=== PATIENT | female | born 1955 | race Two or more races ===

== ENCOUNTER 2021-01-25 17:10 | Outpatient (AMBR) | payer MEDICARE, SELFPAY ==
--- NOTE | 2021-01-23 15:39 | PT.OIERPT ---
PT OP Initial Eval Patient Information Visit Reasons: low back pain Medical Diagnosis: LBP Treatment Dx #1: LBP Start of Care: 01/23/21 Date of Onset: 3 weeks ago Initial Assessment Subjective Pt is 65 yr old bulgarian speaking female that reports worsening LBP exacerbation that radiates down R LE to the heel x3 weeks. Increased LBP with bending, lifting and twisting. She takes pain meds in order to work with back brace in the [employer]. PMH: OA Imaging: MRI and X-ray of L/s in EMR, Grade 1 anterolisthesis L4 on L5, L5-S1 2 mm central lumbar disc bulge contiguous with the right S1 nerve root, L4-L5 2 mm left paracentral disc bulge Pt goal: less LBP and R LE pain Objective Trunk ArOM: B SB 50% of normal with pain L>R Extension: 30% with pain around L4-5, L5-S1 centrally Flexion: 2 from floor with LBP B rotation: 40% with pain R SLR ROM: 45 deg with posterior knee neural tension, LBP LE strength: B hamstrings: 4-/5 Quads 4-/5 Hip abd/add 4-/5 TTP: moderate paraspinals L4-5 and diffusely L3-S1 Neuro: R SLR: positive Assessment Pt presents with trunk extension sensitivity and overlying myofascial pain and TTP around L5-S1. Pt has lumbar extensor atrophy and pain with prolonged standing. These findings are consistent with MRI that shows spondylolisthesis and lower lumbar disc irritation/dysfunction. Pt requires skilled therapy in order to decrease pain and improve standing tolerance and has fair rehab potential. Short Term and Custodial Goals 1. Ind with HEP 2. Improved standing tolerance to 30 minutes with <=4/10 LBP 3. Pt will improve ambulatory distance to 2 [address] blocks 4. Pt will squat x15 with lumbar lordosis and no increase in LBP Treatment Plan 1. Manual therapy 2. Therex 3. Modalities as indicated, moist heat, ice, estim, mechanical traction Frequency and Duration 2x a week for 6 weeks Certification Dates: 01/23/21 to 04/23/21 Office Procedures PT Treatments PT Date of Service: 01/23/21 OP PT Eval Mod Complex 30 minutes: Yes
--- NOTE | 2021-01-25 18:53 | PTNOTE_ITS ---
PT Outpatient Daily Note Date of Service: 01/25/21 OP Daily Note Visit Reasons: low back pain Outpatient Physical Therapy Treatment Date: 01/25/21 Subjective: Same as time of evaluation Objective: See F/S for therex MT: StM L/S with Graston L4-S1 region x10' Assessment: Moderate TTP with MT today L>R sides of L/S. Pt has difficulty lifting LE's in supine to do stretching so we used a towel today Plan: Continue per pOc Length of Time (minutes) of Treatment: 30 Minutes Office Procedures PT Treatments PT Date of Service: 01/23/21 OP PT Eval Mod Complex 30 minutes: Yes PT Treatments PT Date of Service: 01/25/21 Therapeutic Exercise 15 minutes: Yes Manual Management Instructor 15 minutes: Yes
== END 2021-01-29 23:59 | disposition home or self-care (01) ==
PROVIDERS: PCP Orthopaedic Surgery; Referring Provider Orthopaedic Surgery; Visit Provider Orthopaedic Surgery
DX: M54.41 Lumbago with sciatica, right side (principal)
CPT/HCPCS: 97110; 97140; 97162

== ENCOUNTER 2021-02-28 15:40 | Outpatient (AMBR) | payer MEDICARE, SELFPAY ==
--- NOTE | 2021-02-14 12:23 | PT.ODAYNRPT ---
PT Outpatient Daily Note Date of Service: 02/14/21 OP Daily Note Visit Reasons: LOW BACK PAIN Outpatient Physical Therapy Treatment Date: 02/14/21 Subjective: Continued LBP about the same as before therapy Objective: See F/S for therex MT: STM L1-5 with Graston x12' Assessment: Moderate TTP of L/S paraspinals with MT today and prone on elbow positioning. Plan: Continue per POC Length of Time (minutes) of Treatment: 30 Minutes Office Procedures PT Treatments PT Date of Service: 02/14/21 Therapeutic Exercise 15 minutes: Yes Manual Senior Enlisted Advisor 15 minutes: Yes
--- NOTE | 2021-02-28 18:38 | PTNOTE_ITS ---
PT Outpatient Daily Note Date of Service: 02/28/21 OP Daily Note Visit Reasons: LOW BACK PAIN Outpatient Physical Therapy Treatment Date: 02/28/21 Subjective: Continued LBP about the same from her neck down to the belt line Objective: See F/S for therex MT: STM L1-5 with Graston x10' Mechanical traction x7' at 40 lbs Assessment: High tissue irritability limits transitional movements and trunk AROM. Moderate TTP of L/S paraspinals with MT today and prone on elbow positioning. Plan: Continue per POC Length of Time (minutes) of Treatment: 35 Minutes Office Procedures PT Treatments PT Date of Service: 02/14/21 Therapeutic Exercise 15 minutes: Yes Manual Puncher And Fastener 15 minutes: Yes PT Treatments PT Date of Service: 02/28/21 Therapeutic Exercise 15 minutes: Yes Manual Puncher And Fastener 15 minutes: Yes
== END 2021-02-28 23:59 | disposition home or self-care (01) ==
PROVIDERS: PCP Orthopaedic Surgery; Referring Provider Orthopaedic Surgery; Visit Provider Orthopaedic Surgery
DX: M54.50 Low back pain, unspecified (principal)
CPT/HCPCS: 97110; 97140

== ENCOUNTER 2021-03-28 14:59 | Outpatient (AMBR) | payer MEDICARE, SELFPAY ==
--- NOTE | 2021-03-28 18:31 | PTNOTE_ITS ---
PT OP Progress/Discharge Note Date of Service: 03/28/21 Progress Note/DC Note Progress Note/Discharge Note: DC Note Patient Information Visit Reasons: LOW BACK PAIN Service Continue Service or Discharge: Discharge Discharge Date: 03/28/21 Status Subjective: Continued intense LBP with radiation down the LE same as before therapy. Doesn't think therapy will help her. Objective: Trunk AROM: B SB 50% of normal Extension: 30% of normal with pain Flexion: 2 from floor with pain Assessment: Pt has attended the eval and 4 Rx visits with limited progress with therapy goals due to continued LBP and high tissue irritability. She is not likely going to meet goals. Objective findings are unchanged since eval. Plan: Pt discharged for further workup Office Procedures PT Treatments PT Date of Service: 03/28/21 Therapeutic Exercise 15 minutes: Yes Manual Public Aid Eligibility Assistant 15 minutes: Yes
== END 2021-03-31 23:59 | disposition home or self-care (01) ==
PROVIDERS: PCP Orthopaedic Surgery; Referring Provider Orthopaedic Surgery; Visit Provider Orthopaedic Surgery
DX: M54.50 Low back pain, unspecified (principal); M19.90 Unspecified osteoarthritis, unspecified site
CPT/HCPCS: 97110; 97140

== ENCOUNTER → 2024-05-11 | Outpatient (CLI) | payer OTHER, SELFPAY ==
[2024-05-11 10:50] LABS: Collection Type, Urine Clean Catch
[2024-05-11 11:30] LABS: Basophils # (Auto) 0.1 Thou/mm3 (0.0-0.2); Basophils % (Auto) 1 % (0-2.5); Eosinophils # (Auto) 0.2 Thou/mm3 (0.0-0.5); Eosinophils % (Auto) 3 % (0-10); Hematocrit 43.5 % (36.0-46.0); Hemoglobin 14.3 g/dL (12.0-16.0); Immature Granulocytes % (Auto) 0 % (0-0); Immature Granulocytes Auto 0.02 Thou/mm3 (0.00-0.00); Lymphocytes # (Auto) 2.4 Thou/mm3 (1.0-4.8); Lymphocytes % (Auto) 37 % (10-50); Mean Corpuscular HGB Conc 32.9 g/dl (31.0-37.0); Mean Corpuscular Hemoglobin 28.5 pg (25.0-35.0); Mean Corpuscular Volume 87 fL (80-100); Monocytes # (Auto) 0.5 Thou/mm3 (0.0-0.8); Monocytes % (Auto) 8 % (0-12); Neutrophils # (Auto) 3.3 Thou/mm3 (1.8-7.7); Neutrophils % (Auto) 51 % (37-80); Nucleated Red Blood Cell % 0 /100 WBC (0); Platelet Count 296 Thou/mm3 (140-440); RDW Standard Deviation 41.3 fL (36.4-46.3); Red Blood Count 5.02 Miln/mm3 (4.00-5.20); White Blood Count 6.5 Thou/mm3 (3.6-11.0)
[2024-05-11 11:38] LABS: Bilirubin,Urine Negative (Negative); Blood,Urine Negative (Negative); Clarity,Urine Clear (Clear/Hazy); Color,Urine Lt-Yellow (Lt Yel-Yel); Glucose, Urine Negative (Negative); Ketones,Urine Negative (Negative); Leukocyte Esterase,Urine Negative (Negative); Nitrite,Urine Negative (Negative); Protein,Urine Negative (Neg - Trace); RBC,Urine 2 /hpf (0-3); Squamous Epithelial Cell,Urine < 1 /hpf (0-5); Urobilinogen,Urine Negative mg/dL (0.0-1.0); WBC,Urine 1 /hpf (0-5)
[2024-05-11 11:46] LABS: Glucose Estimated Average 123 mg/dL (80-131); Hemoglobin A1C 5.9 % Hgb (4.8-6.0)
[2024-05-11 11:51] LABS: Vitamin D 25 Hydroxy Total 24.8 ng/mL (7.3-40.2)
[2024-05-11 11:57] LABS: Alanine Aminotransferase 18 U/L (10-49); Albumin, Serum 4.2 gm/dL (3.4-4.8); Albumin/Globulin Ratio 1.5 (1.2-2.2); Alkaline Phosphatase 85 U/L (46-116); Anion Gap 6 (7-16); Aspartate Amino Transferase 18 U/L (0-34); BUN/Creatinine Ratio 21 Ratio (12-20); Bilirubin,Total 0.5 mg/dL (0.3-1.2); Blood Urea Nitrogen 15 mg/dL (9-23); Calcium 9.7 mg/dL (8.3-10.6); Calcium (Corrected) 9.7 mg/dL (8.5-10.1); Carbon Dioxide 28.8 mMol/L (20.0-31.0); Chloride 105 mMol/L (98-107); Cholesterol 182 mg/dL (132-200); Creatinine (Component) 0.7 mg/dL (0.6-1.3); Globulin 2.8 gm/dL (2.3-3.5); Glucose 109 mg/dL (74-106); HDL Cholesterol 45 mg/dL (40-60); LDL Cholesterol,Calculated 110 mg/dL (0-130); Osmolality,Calculated 281 (275-295); Potassium 4.9 mMol/L (3.4-5.1); Sodium 140 mMol/L (136-145); Thyroid Stimulating Hormone 0.97 uIU/mL (0.55-4.78); Triglycerides 137 mg/dL (30-150); eGFR > 60 See Note
== END | disposition home or self-care (01) ==
PROVIDERS: PCP Nurse Practitioner Family; Referring Provider Nurse Practitioner Family; Visit Provider Nurse Practitioner Family
DX: Z00.00 Encounter for general adult medical examination without abnormal findings (principal); N39.0 Urinary tract infection, site not specified; R53.83 Other fatigue; Z13.89 Encounter for screening for other disorder; Z13.0 Encounter for screening for diseases of the blood and blood-forming organs and certain disorders involving the immune mechanism; Z13.220 Encounter for screening for lipoid disorders; Z13.21 Encounter for screening for nutritional disorder; Z13.29 Encounter for screening for other suspected endocrine disorder; Z83.3 Family history of diabetes mellitus
CPT/HCPCS: 36415; 80053; 80061; 81001; 82306; 83036; 84443; 85025; 87086

== ENCOUNTER → 2024-05-15 | Outpatient (CLI) | payer OTHER, SELFPAY ==
[2024-05-15 14:27] LABS: OBS Card Expiration Date 2026/05; OBS Performed By LAB; OBS QC OK? Yes
[2024-05-15 17:49] LABS: OBS Developer Lot # 23003; Occult Blood, Stool Negative (Negative); Occult Blood, Stool #2 Negative (Negative); Occult Blood, Stool #3 Negative (Negative)
== END | disposition home or self-care (01) ==
PROVIDERS: PCP Nurse Practitioner Family; Referring Provider Nurse Practitioner Family; Visit Provider Nurse Practitioner Family
DX: Z12.11 Encounter for screening for malignant neoplasm of colon (principal)
CPT/HCPCS: 82270

== ENCOUNTER → 2024-05-29 | Outpatient (CLI) | payer OTHER, SELFPAY ==
--- NOTE | 2024-05-29 10:00 | XR_ITS ---
Examination: Screening digital mammography, bilateral Computer aided detection 3-D breast Tomosynthesis, bilateral Date and time of exam: 05/29/2024, 9:35 AM Comparisons: May 2017 through April 2023 Indications: Screening Technique: Nonmagnified MLO, CC views of the breasts to been obtained, reconstructed from 3-D Tomosynthesis images. R2 computer aided detection program utilized for evaluation of suspicious masses and/or abnormal calcifications. 3-D Tomosynthesis images obtained. Technologist: Findings: There are scattered areas of fibroglandular density. No evidence of abnormal masses or suspicious calcifications. Impression: BI-RADS category 1: Negative findings (within normal) Recommend 1 year follow-up mammogram
== END | disposition home or self-care (01) ==
LOC: CDIM 09:29
PROVIDERS: Referring Provider Nurse Practitioner Family; Visit Provider Nurse Practitioner Family
DX: Z12.31 Encounter for screening mammogram for malignant neoplasm of breast (principal); R92.313 Mammographic fatty tissue density, bilateral breasts
CPT/HCPCS: 77063; 77067

== ENCOUNTER → 2024-06-16 | Outpatient (CLI) | payer OTHER, SELFPAY ==
[2024-06-16 09:51] LABS: Basophils % (Auto) 0 % (0-2.5); Eosinophils # (Auto) 0.1 Thou/mm3 (0.0-0.5); Eosinophils % (Auto) 1 % (0-10); Hematocrit 38.7 % (36.0-46.0); Hemoglobin 12.8 g/dL (12.0-16.0); Immature Granulocytes % (Auto) 0 % (0-0); Immature Granulocytes Auto 0.02 Thou/mm3 (0.00-0.00); Lymphocytes # (Auto) 2.4 Thou/mm3 (1.0-4.8); Lymphocytes % (Auto) 33 % (10-50); Mean Corpuscular HGB Conc 33.1 g/dl (31.0-37.0); Mean Corpuscular Hemoglobin 28.7 pg (25.0-35.0); Mean Corpuscular Volume 87 fL (80-100); Monocytes # (Auto) 0.6 Thou/mm3 (0.0-0.8); Monocytes % (Auto) 9 % (0-12); Neutrophils # (Auto) 4.1 Thou/mm3 (1.8-7.7); Neutrophils % (Auto) 56 % (37-80); Nucleated Red Blood Cell % 0 /100 WBC (0); Platelet Count 299 Thou/mm3 (140-440); RDW Standard Deviation 40.7 fL (36.4-46.3); Red Blood Count 4.46 Miln/mm3 (4.00-5.20); White Blood Count 7.3 Thou/mm3 (3.6-11.0)
[2024-06-16 10:12] LABS: B-Type Natriuretic Peptide 56 pg/mL (0-100)
[2024-06-16 10:13] LABS: Alanine Aminotransferase 14 U/L (10-49); Albumin, Serum 4.1 gm/dL (3.4-4.8); Albumin/Globulin Ratio 1.5 (1.2-2.2); Alkaline Phosphatase 70 U/L (46-116); Anion Gap 7 (7-16); Aspartate Amino Transferase 18 U/L (0-34); BUN/Creatinine Ratio 17 Ratio (12-20); Bilirubin,Total 0.5 mg/dL (0.3-1.2); Blood Urea Nitrogen 10 mg/dL (9-23); Calcium 9.7 mg/dL (8.3-10.6); Calcium (Corrected) 9.7 mg/dL (8.5-10.1); Carbon Dioxide 29.5 mMol/L (20.0-31.0); Chloride 102 mMol/L (98-107); Creatinine (Component) 0.6 mg/dL (0.6-1.3); Globulin 2.7 gm/dL (2.3-3.5); Glucose 103 mg/dL (74-106); Osmolality,Calculated 274 (275-295); Potassium 4.3 mMol/L (3.4-5.1); Sodium 138 mMol/L (136-145); Total Protein 6.8 gm/dL (5.7-8.2); Uric Acid 3.6 mg/dL (3.1-7.8); eGFR > 60 See Note
[2024-06-16 10:14] LABS: Collection Type, Urine Clean Catch
[2024-06-16 10:56] LABS: Bilirubin,Urine Negative (Negative); Blood,Urine Negative (Negative); Clarity,Urine Clear (Clear/Hazy); Color,Urine Colorless (Lt Yel-Yel); Glucose, Urine Negative (Negative); Ketones,Urine Negative (Negative); Leukocyte Esterase,Urine Negative (Negative); Nitrite,Urine Negative (Negative); Protein,Urine Negative (Neg - Trace); RBC,Urine < 1 /hpf (0-3); Specific Gravity,Urine 1.008 (1.001-1.035); Squamous Epithelial Cell,Urine < 1 /hpf (0-5); Urobilinogen,Urine Negative mg/dL (0.0-1.0); WBC,Urine < 1 /hpf (0-5)
== END | disposition home or self-care (01) ==
LOC: COPL 09:01
PROVIDERS: PCP Nurse Practitioner Family; Referring Provider Nurse Practitioner Family; Visit Provider Nurse Practitioner Family
DX: Z13.0 Encounter for screening for diseases of the blood and blood-forming organs and certain disorders involving the immune mechanism (principal); I50.9 Heart failure, unspecified; N39.0 Urinary tract infection, site not specified; Z13.29 Encounter for screening for other suspected endocrine disorder
CPT/HCPCS: 36415; 80053; 81001; 83880; 84550; 85025; 87086

== ENCOUNTER → 2025-03-02 | Outpatient (CLI) | payer OTHER, SELFPAY ==
[2025-03-02 12:30] LABS: Basophils # (Auto) 0.0 Thou/mm3 (0.0-0.2); Basophils % (Auto) 1 % (0-2.5); Eosinophils # (Auto) 0.2 Thou/mm3 (0.0-0.5); Eosinophils % (Auto) 2 % (0-10); Hematocrit 43.3 % (36.0-46.0); Hemoglobin 14.0 g/dL (12.0-16.0); Immature Granulocytes Auto 0.03 Thou/mm3 (0.00-0.00); Lymphocytes # (Auto) 3.1 Thou/mm3 (1.0-4.8); Lymphocytes % (Auto) 42 % (10-50); Mean Corpuscular HGB Conc 32.3 g/dl (31.0-37.0); Mean Corpuscular Hemoglobin 28.3 pg (25.0-35.0); Mean Corpuscular Volume 88 fL (80-100); Monocytes # (Auto) 0.5 Thou/mm3 (0.0-0.8); Monocytes % (Auto) 7 % (0-12); Neutrophils # (Auto) 3.5 Thou/mm3 (1.8-7.7); Neutrophils % (Auto) 48 % (37-80); Nucleated Red Blood Cell # 0.00 Thou/mm3 (0.00-0.00); Nucleated Red Blood Cell % 0 /100 WBC (0); Platelet Count 289 Thou/mm3 (140-440); RDW Standard Deviation 41.2 fL (36.4-46.3); Red Blood Count 4.94 Miln/mm3 (4.00-5.20); White Blood Count 7.4 Thou/mm3 (3.6-11.0)
[2025-03-02 12:59] LABS: Sed Rate (ESR) 23 mm/hr (0-30)
[2025-03-02 13:22] LABS: Alanine Aminotransferase 16 U/L (10-49); Albumin, Serum 4.8 gm/dL (3.4-4.8); Albumin/Globulin Ratio 1.5 (1.2-2.2); Alkaline Phosphatase 76 U/L (46-116); Anion Gap 9 (7-16); Aspartate Amino Transferase 21 U/L (0-34); BUN/Creatinine Ratio 17 Ratio (12-20); Bilirubin,Total 0.5 mg/dL (0.3-1.2); Blood Urea Nitrogen 12 mg/dL (9-23); Calcium 9.8 mg/dL (8.3-10.6); Calcium (Corrected) 9.8 mg/dL (8.5-10.1); Carbon Dioxide 28.4 mMol/L (20.0-31.0); Chloride 105 mMol/L (98-107); Creatinine (Component) 0.7 mg/dL (0.6-1.3); Globulin 3.3 gm/dL (2.3-3.5); Glucose 107 mg/dL (74-106); Osmolality,Calculated 282 (275-295); Potassium 3.9 mMol/L (3.4-5.1); Sodium 142 mMol/L (136-145); Total Protein 8.1 gm/dL (5.7-8.2); Uric Acid 3.6 mg/dL (3.1-7.8); eGFR > 60 See Note
[2025-03-02 13:23] LABS: C-Reactive Protein < 0.5 mg/dL (0.0-0.9)
[2025-03-02 15:20] LABS: RA Screen Negative (Negative)
[2025-03-06 17:51] LABS: Sjogren's antibody (SS-A) <1.0 NEG AI (<1.0 NEGATIVE)
[2025-03-08 06:42] LABS: ANA Pattern NUCLEAR, HOMOGENEOUS; ANA Pattern NUCLEAR, SPECKLED; ANA Screen, IFA POSITIVE (NEGATIVE); ANA Titer 1:160 titer; ANA Titer 1:40 titer; CCP Antibody (IgG)* <16 Units; DNA (ds) Antibody* 1 IU/mL; Sjogren's Antibody (SS-B) <1.0 NEG AI (<1.0 NEGATIVE)
== END | disposition home or self-care (01) ==
LOC: COPL 10:43
PROVIDERS: PCP Nurse Practitioner Family; Referring Provider Nurse Practitioner Family; Visit Provider Nurse Practitioner Family
DX: Z00.00 Encounter for general adult medical examination without abnormal findings (principal); M25.50 Pain in unspecified joint; L50.9 Urticaria, unspecified; R21 Rash and other nonspecific skin eruption; Z13.89 Encounter for screening for other disorder; R53.83 Other fatigue
CPT/HCPCS: 36415; 80053; 84550; 85025; 85652; 86038; 86140; 86200; 86225; 86235; 86430